=== PATIENT | male | born 2000 | race African-American/Black ===

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

== ENCOUNTER 2021-07-01 05:47 | Emergency (ER) | payer OTHER | END 2021-07-01 07:00 | disposition left against medical advice (07) | LOC: ERS 05:47 | DX: M54.50 Low back pain, unspecified (principal) | CPT/HCPCS: 99283 ==

== ENCOUNTER 2024-09-09 18:11 | Emergency (ER) | payer OTHER ==
[2024-09-09] MEDS ORDERED: Ondansetron PF 4 MG/2 ML Vial ONE (18:22)
[2024-09-09] MEDS ORDERED: Ketorolac Tromethamine 30 MG (1 mL) VIAL ONE (18:22)
[2024-09-09 18:53] LABS: Bacteria/HPF None Seen HPF (None Seen); Bilirubin Negative (Negative); Blood, Urine Negative (Negative); CAUTI Indications for Culture Pelvic or flank pain; Clarity Clear (Clear); Glucose, Urine (Dipstick) Normal (Negative); Ketone, Urine Negative (Negative); Leukocyte Negative Leu/uL (Negative); Nitrite Negative (Negative); Protein, Urine (Dipstick) 100 mg/dL (Neg-Trace); RBC/HPF 0-3 HPF (0-3); Specific Gravity, Urine 1.025 (1.002-1.036); Squamous Epithelial 0-3 HPF (0-3); Urobilinogen Normal mg/dL (Less than 2); WBC/HPF 0-3 HPF (0-3); pH, Urine 6.5 (5.0-9.0)
[2024-09-09 18:55] LABS: Urine Culture Reflex No No
== END 2024-09-09 19:37 | disposition home or self-care (01) ==
LOC: ERS 18:11
DX: R10.9 Unspecified abdominal pain (principal)
CPT/HCPCS: 74176; 81001; J1885; J2405